=== PATIENT | male | born 1985 | race Caucasian/White ===

== ENCOUNTER 2024-09-16 21:47 | Emergency (ER) | payer OTHER ==
[~2024-09-16] VITALS: Ht 182.9 cm; Wt 90.7 kg
[2024-09-16] MEDS ORDERED: OFLO5DRO5 LEFT EAR (22:09)
[2024-09-16] MEDS ORDERED: ACETAMINOPHEN ES 500 MG TABLET ONE (22:10)
[2024-09-16] MEDS: ACETAMINOPHEN ES 500 MG TABLET PO ONE (22:11)
[2024-09-16 22:12] VITALS: BP 132/84; TEMP 98.1; O2SAT 99
== END 2024-09-16 22:17 | disposition home or self-care (01) ==
LOC: ER 21:51
DX: H72.92 Unspecified perforation of tympanic membrane, left ear (principal); F17.200 Nicotine dependence, unspecified, uncomplicated; F41.9 Anxiety disorder, unspecified; Z79.899 Other long term (current) drug therapy